=== PATIENT | female | born 1985 | race American Indian/Alaskan Native ===

== ENCOUNTER 2018-11-28 09:11 | Inpatient (IN) | payer MEDICAID ==
[2018-11-28] MEDS ORDERED: MAGNESIUM SULFATE 4GM/100ML 4 GM/100 ML BAG IV ONE (09:29)
[2018-11-28] MEDS ORDERED: LACTATED RINGERS 500 ML IV ONE (09:32)
[2018-11-28] MEDS: MAGNESIUM SULFATE 40GM/1000ML 40 GM/1,000 ML BAG IV SCH (09:45)
[2018-11-28] MEDS: LACTATED RINGERS 1,000 ML IV SCH (10:21)
[2018-11-28] MEDS: CELESTONE SOLUSPAN IM SCH (10:30)
[2018-11-28] MEDS ORDERED: STADOL IV ONE ×2 (10:43→18:23)
--- NOTE | 2018-11-28 11:12 | History and Physical Report ---
History of Present Illness Date of examination: 11/28/18 Chief complaint: Contractions History of present illness: Pt is a 33yo BF EDC 01/21/19; EGA 32 2/7 weeks presents to L&D via EMS complaining of strong contractions. She denied ROM or bleeding. She received care at [facility] and co-managed by [facility] for Previous C Section x 2 and Cerclage x 2, and currently receiving 17 Hydroxy-Progesterone. records are available. Past History Past Medical History: no pertinent history Past Surgical History: section (x2) Social history: no significant social history, single - Obstetrical History Expected Date of Delivery: 01/21/19 Actual Gestation: 32 Week(s) 3 Day(s) : 5 Medications and Allergies Allergies Allergy/AdvReac Type Severity Reaction Status Date / Time Penicillins Allergy Itching Verified 11/28/18 09:29 Home Medications Medication Instructions Recorded Confirmed Last Taken Type Albuterol Sulfate [Ventolin HFA] 2 puff IH Q4H PRN #1 hfa.aer.ad 10/11/1407/24 Unknown Rx Ferrous Sulfate [Feosol 325 MG tab] 325 mg PO BID #60 tablet 07/27/15 Unknown Rx Ibuprofen [Motrin 800 MG tab] 800 mg PO Q8H PRN #30 tablet 07/27/15 Unknown Rx Vit-Fe Fumar-FA [ 1 each PO QDAY #30 tablet 07/27/15 Unknown Rx Vitamin] Cyclobenzaprine HCl [Flexeril 5 MG 5 mg PO Q8HR PRN #10 tab 11/22/15 Unknown Rx TAB] Indomethacin [Indocin] 25 mg PO Q8H #9 capsule 11/22/15 Unknown Rx Ondansetron [Zofran Odt] 4 mg PO Q8HR #15 tab.rapdis 11/22/15 Unknown Rx Active Meds: Active Medications Betamethasone Acet/Betameth SodPhos (Celestone Soluspan) 12 mg IM Q24HR NAKUL Stop: 11/29/18 10:01 Last Admin: 11/28/18 10:30 Dose: 12 mg Documented by: Lactated Ringer's (Lactated Ringers) 1,000 mls @ 125 mls/hr IV DIRECT NAKUL Last Admin: 11/28/18 10:21 Dose: 75 mls/hr Documented by: Magnesium Sulfate (Magnesium Sulfate 40gm/1000ml) 40 gm in 1,000 mls @ 50 mls/hr IV DIRECT NAKUL Last Admin: 11/28/18 09:45 Dose: 2 gm/hr, 50 mls/hr Documented by: Review of Systems All systems: negative - Vital Signs Vital signs: Vital Signs Temp Resp 97.0 F L 18 11/28/18 09:32 11/28/18 09:32 Temp Pulse Resp BP Pulse Ox 97.0 F L 90 18 123/64 11/28/18 09:32 11/28/18 10:55 11/28/18 09:32 11/28/18 10:55 - Physical Exam Breasts: Positive: deferred Cardiovascular: Regular rate Lungs: Positive: Clear to auscultation Abdomen: Positive: normal appearance Genitourinary (Female): Positive: normal external genitalia Vagina: Positive: normal moisture Uterus: Positive: enlarged Extremities: Positive: normal - Obstetrical FHR: category 1 Uterine Contraction Monitor Mode: External Cervical Dilatation: 1 Results Result Diagrams: 11/28/18 09:40 All other labs normal. Assessment and Plan - Patient Problems (1) 32 weeks gestation of Onset Date: 11/28/18 Current Visit: Yes Status: Acute Plan to address problem: A: IUP @ 32 2/7 weeks contractions Previous C Section x 2 Incompetent cervix - with cerclage in place P: Admit to L&D for Observation Will begin IV magnesium for tocolysis, IV antibiotics and IM steroids Obtain Ob u/s Obtain [facility] consultation (2) contractions Onset Date: 11/28/18 Current Visit: Yes Status: Acute (3) Previous section Onset Date: 11/28/18 Current Visit: Yes Status: Acute (4) Incompetent cervix Onset Date: 11/28/18 Current Visit: Yes Status: Acute
[2018-11-28] MEDS ORDERED: COLACE PO PRN (11:13)
[2018-11-28] MEDS ORDERED: TYLENOL PO PRN (11:13)
[2018-11-28] MEDS ORDERED: BENADRYL PO PRN (11:13)
[2018-11-28] MEDS ORDERED: MILK OF MAGNESIA PO PRN (11:13)
[2018-11-28] MEDS ORDERED: ZOFRAN IV PRN (11:13)
[2018-11-28 11:43] LABS: Hematocrit 31.2 % (30.3-42.9); Hemoglobin 10.7 gm/dl (10.1-14.3); Mean Corpuscular HGB Conc 34 % (30-34); Mean Corpuscular Volume 93 fl (79-97); Platelet Count 254 K/mm3 (140-440); Red Blood Count 3.34 M/mm3 (3.65-5.03); Red Cell Distribution Width 14.9 % (13.2-15.2)
--- NOTE | 2018-11-28 13:45 | Ultrasound Report ---
ULTRASOUND BIOPHYSICAL PROFILE: History: labor Technique: Transabdominal ultrasound with Doppler interrogation. 2 - breathing movements 2 - movements 2 - posture and tone 2 - Qualitative amniotic fluid volume 8 - TOTAL SCORE OF POSSIBLE 8 Heart Rate (bpm) 123
[2018-11-28] MEDS: CLEOCIN 900 MG/50 mL 900 MG/50 ML BAG IV SCH (14:19)
[2018-11-28] MEDS ORDERED: AMBIEN PO PRN (23:26)
--- NOTE | 2018-11-28 23:34 | Ultrasound Report ---
PROCEDURE: US OB FOLLOW UP TECHNIQUE: Real-time limited sonographic examination was performed for evaluation of well-bein g, amniotic fluid volume for each fetus with image documentation (1 or more fetuses). HISTORY: well-being, PTL COMPARISONS: None . FINDINGS: MATERNAL Uterus: Within normal limits . Internal Os: closed . FETUS IUP: Single living intrauterine . Position: Vertex . Placental position: Anterior, without previa . Amniotic fluid volume: 4 quadrant volume 12.6 cm Heart rate and rhythm: 126 BPM, Regular . anatomic survey: Not performed for this study . MEASUREMENTS BPD: 8 cm . HC: 28.8 cm . AC: 28.5 cm . FL: 6.3 cm . Mean Gestational Age (composite criteria): 32 weeks 2 days . Ratio biometry: Normal . Estimated Weight: 1972 grams Interval growth: Appropriate . Estimated Due Date (this scan): 01/21/2019 . IMPRESSION: 1. Single living intrauterine gestation at approximately 32 weeks 2 days . 2. EDC by US 01/21/2019 . This document is electronically signed by Carla Bowen DO., November 29 2018 12:31:47 AM ET
[2018-11-28] MEDS ORDERED: PERCOCET 5/325 PO PRN (23:36)
[2018-11-29] MEDS: CLEOCIN 900 MG/50 mL 900 MG/50 ML BAG IV SCH ×4 (00:02→22:56)
[2018-11-29] MEDS: LACTATED RINGERS 1,000 ML IV SCH ×3 (02:00→12:34)
[2018-11-29] MEDS: MAGNESIUM SULFATE 40GM/1000ML 40 GM/1,000 ML BAG IV SCH (07:34)
[2018-11-29] MEDS: CELESTONE SOLUSPAN IM SCH (10:50)
[2018-11-29] MEDS: PRENATAL VITAMIN PO SCH (10:51)
[2018-11-29] MEDS: PERCOCET 5/325 PO PRN (12:34)
--- NOTE | 2018-11-29 15:13 | Consultation ---
History of Present Illness Consult date: 11/29/18 Requesting physician: TINO CERDA Reason for consult: contractions History of present illness: Patient Name: BRENDA BYRD : 87 Attending: Dr. Tino Cerda [employer]: Jose Francisco Hagen M.D. Date of Consultation: Thursday, November 29, 2018 Indication for Admission: * Intrauterine twin at 32 weeks 3 days gestation * Cervical Cerclage In Situ * Suspected uterine contractions, Rule out labor * History of gallbladder stones. Rule out Cholelithiasis Thank you for your recent consultation regarding the above named patient. As you are aware, this is a 33 year old para 1122 at 32 weeks 3 days (based on an JESSIE of 01/21/19) for whom I recently provided a perinatology consultation. As you are likely aware, this is a patient who underwent a cerclage placement due to cervical incompetence by Dr. Hagen on August 11, 2018. Patient was earlier yesterday with complaints contractions and pulling pain while walking. Patient indicates that she had similar symptoms at [facility] and was noted to have gallbladder stones. Those symptoms resolved with IV fluid and pain medication in August of 2018. Her exam showed an intact cerclage and a short cervical length. She denies vaginal bleeding or fluid leakage. PAST OB HISTORY: 2006: Delivery at 23 weeks complicated by cervical incompetence 2009: SAB; 2009: CS at 32 weeks with cerclage complicated by PPROM and emergency CP; 2016: CS at term. Had cerclage and adriana no other complications. [facility] ULTRASONOGRAPHY: * See report in chart. RECENT [facility] ULTRASOUND (11/18/18) EGA: 30 weeks 6 days. Cervical length: 3.6 cm H/O Inc Cervix with Cerclage Marginal Placenta Previa anterior Normal EFW 54 % previous scan BPP 8/8 reassuring status Physical Examination and Lab Testing: * See notes in patients chart * During vaginal examination the patients cervix was noted to be closed and long. * No contractions were palpable on examination. * Cerclage in situ * Admission Labs: See patients hospital chart Past History Past Medical History: no pertinent history Past Surgical History: section (x2) - Obstetrical History : 5 Medications and Allergies Allergies Allergy/AdvReac Type Severity Reaction Status Date / Time Penicillins Allergy Itching Verified 11/28/18 09:29 Home Medications Medication Instructions Recorded Confirmed Last Taken Type Albuterol Sulfate [Ventolin HFA] 2 puff IH Q4H PRN #1 hfa.aer.ad 10/11/14 Unknown Rx Ferrous Sulfate [Feosol 325 MG tab] 325 mg PO BID #60 tablet 07/27/15 Unknown Rx Ibuprofen [Motrin 800 MG tab] 800 mg PO Q8H PRN #30 tablet 07/27/15 Unknown Rx Vit-Fe Fumar-FA [ 1 each PO QDAY #30 tablet 07/27/15 Unknown Rx Vitamin] Cyclobenzaprine HCl [Flexeril 5 MG 5 mg PO Q8HR PRN #10 tab 11/22/15 Unknown Rx TAB] Indomethacin [Indocin] 25 mg PO Q8H #9 capsule 11/22/15 Unknown Rx Ondansetron [Zofran Odt] 4 mg PO Q8HR #15 tab.rapdis 11/22/15 Unknown Rx Active Meds: Active Medications Acetaminophen (Tylenol) 650 mg PO Q4H PRN PRN Reason: Pain MILD(1-3)/Fever >100.5/CLOUD Diphenhydramine HCl (Benadryl) 25 mg PO Q6H PRN PRN Reason: Itching Docusate Sodium (Colace) 100 mg PO Q12H PRN PRN Reason: Constipation Magnesium Sulfate (Magnesium Sulfate 40gm/1000ml) 40 gm in 1,000 mls @ 50 mls/hr IV DIRECT NAKUL Last Admin: 11/29/18 07:34 Dose: 2 gm/hr, 50 mls/hr Documented by: Lactated Ringer's (Lactated Ringers) 1,000 mls @ 125 mls/hr IV DIRECT NAKUL Last Admin: 11/29/18 12:34 Dose: 75 mls/hr Documented by: Clindamycin HCl (Cleocin 900 Mg/50 Ml) 900 mg in 50 mls @ 100 mls/hr IV Q8HR NAKUL; Protocol Last Admin: 11/29/18 13:51 Dose: 100 mls/hr Documented by: Magnesium Hydroxide (Milk Of Magnesia) 30 ml PO QHS PRN PRN Reason: Laxative Effect Multivitamins/Iron/Calcium ( Vitamin) 1 each PO QDAY [facility] Last Admin: 11/29/18 10:51 Dose: 1 each Documented by: Ondansetron HCl (Zofran) 4 mg IV Q6H PRN PRN Reason: Nausea And Vomiting Oxycodone/Acetaminophen (Percocet 5/325) 2 tab PO Q4H PRN PRN Reason: Pain, Moderate (4-6) Last Admin: 11/29/18 12:34 Dose: 2 tab Documented by: Oxycodone/Acetaminophen (Percocet 5/325) 1 tab PO Q4H PRN PRN Reason: Pain, Moderate (4-6) Last Admin: 11/28/18 23:59 Dose: 1 tab Documented by: Zolpidem Tartrate (Ambien) 10 mg PO QHS PRN PRN Reason: Insomnia - Vital Signs Vital signs: Vital Signs Temp Resp 97.0 F L 18 11/28/18 09:32 11/28/18 09:32 Temp Pulse Resp BP Pulse Ox 96.7 F L 100 H 17 108/56 11/29/18 08:12 11/29/18 14:55 11/29/18 08:12 11/29/18 14:55 Results Result Diagrams: 11/28/18 09:40 All other labs normal. Assessment and Plan ASSESSMENT * Intrauterine twin at 32 weeks 3 days gestation with suspected uterine contractions. * Cervical Cerclage In Situ * Suspected uterine contractions, Rule out labor * History of gallbladder stones. Rule out Cholelithiasis * We recommend Magnesium sulfate for neuroprotection. * Given the current findings, the likelihood for imminent premature delivery is UNCLEAR. RECOMMENDATIONS: 1. We would recommend an RUQ and gallbladder ultrasound to rule out cholecystitis 2. Given the current gestational age and estimated weight, I would recommend continued empiric tocolysis to avoid premature . 3. At this EGA we would NOT recommend indomethacin. 4. Analgesia PRN. 5. Given the EGA we would recommend steroids to enhance lung maturation should delivery be necessary. 6. Magnesium sulfate for neuroprotection. 7. If patient continues to complain of contractions I would REMOVE her cerclage and observe. 8. As always, this patient would benefit from analgesia or narcotic pain relief to facilitate therapeutic rest in the presence of painful contractions. 9. I would also abandon all attempts of tocolysis and prepare for delivery in the presence of SROM, unexplained vaginal bleeding, imminent failure of the cerclage, SVE > 6 cm or a non-reassuring heart rate pattern. Thank you for allowing us to participate in the care of this patient. We look forward to the opportunity to assist in her continued management. If you have any questions, we may be reached at [phone]. Jose Francisco Hagen M.D. [facility]
--- NOTE | 2018-11-29 19:47 | Progress Note ---
Assessment and Plan - Patient Problems (1) 32 weeks gestation of Onset Date: 11/28/18 Current Visit: Yes Status: Acute Plan to address problem: A: IUP @ 32 3/7 weeks contractions Previous C Section x 2 Incompetent cervix - with cerclage in place P: Continue observation Continue IV magnesium for tocolysis, IV antibiotics and IM steroids Appreciate [facility] consultation Obtain RUQ u/s (2) contractions Onset Date: 11/28/18 Current Visit: Yes Status: Acute (3) Previous section Onset Date: 11/28/18 Current Visit: Yes Status: Acute (4) Incompetent cervix Onset Date: 11/28/18 Current Visit: Yes Status: Acute Subjective - Subjective Date of service: 11/29/18 Principal diagnosis: IUP @ 32 3/7 weeks; contractions; Incompetent cervix; C Section x 2 Interval history: Pt is a 33yo BF EDC 01/21/19; EGA 32 3/7 weeks presented to L&D via EMS complaining of strong contractions - now improved after IV Magnesium for tocolysis. She denies ROM or bleeding. She received care at [facility] and co-managed by [facility] for Previous C Section x 2 and Cerclage x 2, and currently receiving 17 Hydroxy-Progesterone. Since admission her pains have improved. +FM Patient reports: movement normal, contractions, no new complaints, no loss of fluid, no vaginal bleeding Objective - Vital Signs Vital Signs: Vital Signs - 12hr 11/29/18 11/29/18 11/29/18 07:56 08:11 08:12 Temperature 96.7 F L 96.7 F L Pulse Rate 112 H Respiratory 15 17 Rate Blood Pressure 114/63 11/29/18 11/29/18 11/29/18 08:55 09:56 10:56 Temperature Pulse Rate 94 H 108 H 99 H Respiratory Rate Blood Pressure 130/68 120/55 126/62 11/29/18 11/29/18 11/29/18 11:56 11:57 12:00 Temperature 98.1 F Pulse Rate 109 H 109 H Respiratory 16 Rate Blood Pressure 126/60 121/55 11/29/18 11/29/18 11/29/18 12:09 12:56 13:56 Temperature Pulse Rate 100 H 105 H 99 H Respiratory Rate Blood Pressure 135/68 129/65 114/52 11/29/18 11/29/18 11/29/18 14:55 15:55 16:50 Temperature 97.9 F Pulse Rate 100 H 96 H Respiratory Rate Blood Pressure 108/56 106/56 11/29/18 11/29/18 11/29/18 16:57 17:55 18:56 Temperature Pulse Rate 103 H 97 H 105 H Respiratory Rate Blood Pressure 135/65 127/65 117/56 - Exam Abdomen: Present: normal appearance, soft Uterus: Present: normal FHR: category 1 Uterine Contraction Monitor Mode: External Uterine Contraction Pattern: Irregular Uterine Contraction Intensity: Mild - Labs Labs: Abnormal Labs 11/28/18 09:40 RBC 3.34 L
[2018-11-29 20:56] LABS: Alanine Aminotransferase 9 units/L (7-56)
[2018-11-30] MEDS: LACTATED RINGERS 1,000 ML IV SCH ×2 (04:01→17:09)
[2018-11-30] MEDS: CLEOCIN 900 MG/50 mL 900 MG/50 ML BAG IV SCH ×2 (08:16→16:25)
[2018-11-30] MEDS: MAGNESIUM SULFATE 40GM/1000ML 40 GM/1,000 ML BAG IV SCH (08:17)
[2018-11-30] MEDS: PRENATAL VITAMIN PO SCH (11:02)
--- NOTE | 2018-11-30 13:23 | Progress Note ---
Assessment and Plan - Patient Problems (1) 32 weeks gestation of Onset Date: 11/28/18 Current Visit: Yes Status: Acute Plan to address problem: A: IUP @ 32 4/7 weeks contractions - resolved Previous C Section x 2 Incompetent cervix - with cerclage in place P: Discontinue IV magnesium for tocolysis. S/P IV antibiotics and IM steroids Appreciate [facility] consultation Anticipate discharge tomorrow. (2) contractions Onset Date: 11/28/18 Current Visit: Yes Status: Acute (3) Previous section Onset Date: 11/28/18 Current Visit: Yes Status: Acute (4) Incompetent cervix Onset Date: 11/28/18 Current Visit: Yes Status: Acute Subjective - Subjective Date of service: 11/30/18 Principal diagnosis: IUP @ 32 4/7 weeks; contractions; Incompetent cervix; C Section x 2 Interval history: Pt is a 33yo BF EDC 01/21/19; EGA 32 4/7 weeks presented to L&D via EMS complaining of strong contractions - now improved after IV Magnesium for tocolysis. She denies ROM or bleeding. She received care at [facility] and co-managed by [facility] for Previous C Section x 2 and Cerclage x 2, and currently receiving 17 Hydroxy-Progesterone. Since admission her pains have improved, she received Betamethasone an IV Magnesium sulfate, and RUQ u/s showed 2 small gallstones. +FM Patient reports: movement normal, contractions, no new complaints, no loss of fluid, no vaginal bleeding Objective - Vital Signs Vital Signs: Vital Signs - 12hr 11/30/18 11/30/18 11/30/18 01:55 02:55 03:56 Temperature Pulse Rate 92 H 100 H 90 Respiratory Rate Blood Pressure 109/55 112/55 112/57 11/30/18 11/30/18 11/30/18 04:57 05:55 06:55 Temperature Pulse Rate 93 H 95 H 93 H Respiratory Rate Blood Pressure 110/55 104/54 114/62 11/30/18 11/30/18 11/30/18 07:55 08:50 08:51 Temperature 98.2 F Pulse Rate 92 H 100 H Respiratory 18 Rate Blood Pressure 109/58 107/56 06/05/19 06/05/19 06/05/19 08:55 09:55 10:55 Temperature Pulse Rate 96 H 97 H 97 H Respiratory Rate Blood Pressure 108/58 103/54 105/49 11/30/18 11/30/18 11/30/18 11:55 12:24 12:55 Temperature 98.9 F Pulse Rate 108 H 98 H Respiratory 18 Rate Blood Pressure 125/65 112/57 - Exam Lungs: Clear to auscultation Abdomen: Present: normal appearance Uterus: Present: normal FHR: category 1 Uterine Contraction Monitor Mode: External Uterine Contraction Pattern: Absent - Labs Labs: Abnormal Labs 11/28/18 09:40 RBC 3.34 L Laboratory Results - last 24 hr 11/29/18 20:04 AST 13 ALT 9 - Results US- obstetric: report reviewed
--- NOTE | 2018-11-30 14:58 | Progress Note ---
Assessment and Plan ASSESSMENT * 32 weeks 4 days gestation with suspected uterine contractions; denies contractions today. * Cervical Cerclage In Situ * Suspected uterine contractions, Rule out labor * History of gallbladder stones. Rule out Cholelithiasis; pending ultrasound report dated 11/30/18 * Magnesium sulfate for neuroprotection in progress * RECOMMENDATIONS: 1. Continued empiric tocolysis to avoid premature . 2. At this EGA we would NOT recommend indomethacin. 3. Analgesia PRN. 4. Steroids to enhance lung maturation should delivery be necessary. 5. Magnesium sulfate for neuroprotection in progress. 6. With continued to complain of contractions REMOVE her cerclage and observe. 7. As always, this patient would benefit from analgesia or narcotic pain relief to facilitate therapeutic rest in the presence of painful contractions. 8. Abandon all attempts of tocolysis and prepare for delivery in the presence of SROM, unexplained vaginal bleeding, imminent failure of the cerclage, SVE > 6 cm or a non-reassuring heart rate pattern. Thank you for allowing us to participate in the care of this patient. We look forward to the opportunity to assist in her continued management. If you have any questions, please contact our oncall physician Dr. Altman. Subjective - Subjective Date of service: 11/30/18 Principal diagnosis: IUP @ 32 4/7 weeks; contractions; Incompetent cervix; C Section x 2 Interval history: Patient reports that she experiences pain in position pain. Denies pain at present and reports pain scale as 0/10. Patient expresses that the pain she feels is in the area of her previous C.section scar. Reports that when she does feel pain it is worse on the left of her C.section incision. Report from Abdominal ultrasound pending. Patient reports: movement normal, contractions (Denies contractions, leakage of fluid, vaginal bleeding), no new complaints, no loss of fluid, no vaginal bleeding Objective - Vital Signs Vital Signs: Vital Signs - 12hr 11/30/18 11/30/18 11/30/18 02:55 03:56 04:57 Temperature Pulse Rate 100 H 90 93 H Respiratory Rate Blood Pressure 112/55 112/57 110/55 11/30/18 11/30/18 11/30/18 05:55 06:55 07:55 Temperature Pulse Rate 95 H 93 H 92 H Respiratory Rate Blood Pressure 104/54 114/62 109/58 11/30/18 11/30/18 11/30/18 08:50 08:51 08:55 Temperature 98.2 F Pulse Rate 100 H 96 H Respiratory 18 Rate Blood Pressure 107/56 108/58 11/30/18 11/30/18 11/30/18 09:55 10:55 11:55 Temperature Pulse Rate 97 H 97 H 108 H Respiratory Rate Blood Pressure 103/54 105/49 125/65 11/30/18 11/30/18 11/30/18 12:24 12:55 13:55 Temperature 98.9 F Pulse Rate 98 H 97 H Respiratory 18 Rate Blood Pressure 112/57 109/59 - Exam Cardiovascular: Regular rate Lungs: Normal air movement Abdomen: Present: normal appearance, soft, other (gravid) - Labs Labs: Abnormal Labs 11/28/18 09:40 RBC 3.34 L Laboratory Results - last 24 hr 11/29/18 20:04 AST 13 ALT 9
--- NOTE | 2018-11-30 16:19 | Ultrasound Report ---
RIGHT UPPER QUADRANT ABDOMINAL ULTRASOUND: 11/30/18 CLINICAL: Right upper quadrant pain. FINDINGS: High-resolution ultrasound demonstrated a normal liver. Normal hepatic vasculature and inferior vena cava. Normally distended gallbladder with several stones in the gallbladder neck. The gall bladder wall measures 3 mm in thickness. No pericholecystic fluid. Normal intrahepatic and extra hepatic bile ducts. The common bile duct measures 3.0 mm diameter. The pancreas was well imaged and normal. Normal upper abdominal aorta. The right kidney is normal and measures 9.7 x 4.9 x 5.2cm. No ascites or mass. IMPRESSION: Cholelithiasis but no evidence of acute cholecystitis or choledocholithiasis. No signs of pancreatitis.
[2018-12-01] MEDS: PERCOCET 5/325 PO PRN (00:34)
--- NOTE | 2018-12-01 08:55 | Progress Note ---
Assessment and Plan - Patient Problems (1) 32 weeks gestation of Onset Date: 11/28/18 Current Visit: Yes Status: Acute Plan to address problem: A: IUP @ 32 5/7 weeks contractions - resolved Previous C Section x 2 Incompetent cervix - with cerclage in place P: Appreciate [facility] consultation May go home today. (2) contractions Onset Date: 11/28/18 Current Visit: Yes Status: Acute (3) Previous section Onset Date: 11/28/18 Current Visit: Yes Status: Acute (4) Incompetent cervix Onset Date: 11/28/18 Current Visit: Yes Status: Acute Subjective - Subjective Date of service: 12/01/18 Principal diagnosis: IUP @ 32 5/7 weeks; contractions; Incompetent cervix; C Section x 2 Interval history: Pt is a 33yo BF EDC 01/21/19; EGA 32 5/7 weeks presented to L&D via EMS complaining of strong contractions - now improved after IV Magnesium for tocolysis. She denies ROM or bleeding. She received care at [facility] and co-managed by [facility] for Previous C Section x 2 and Cerclage x 2, and currently receiving 17 Hydroxy-Progesterone. Since admission her pains have improved, she received Betamethasone an IV Magnesium sulfate, and RUQ u/s showed small gallstones , but no cholecystitis. +FM Patient reports: movement normal, contractions (Denies contractions, leakage of fluid, vaginal bleeding), no new complaints, no loss of fluid, no vaginal bleeding Objective - Vital Signs Vital Signs: Vital Signs - 12hr 12/01/18 12/01/18 12/01/18 00:00 00:07 00:34 Temperature 97.3 F L Pulse Rate 91 H 90 Respiratory 19 18 Rate Blood Pressure 110/55 Blood Pressure 110/55 [Right] 12/01/18 12/01/18 04:15 04:16 Temperature 96.9 F L Pulse Rate 82 Respiratory 18 Rate Blood Pressure 118/73 Blood Pressure [Right] - Exam Abdomen: Present: normal appearance, soft Uterus: Present: normal FHR: category 1 Uterine Contraction Monitor Mode: External Uterine Contraction Pattern: Absent - Labs Labs: Abnormal Labs 11/28/18 09:40 RBC 3.34 L - Results US- obstetric: report reviewed
[2018-12-01] MEDS: PRENATAL VITAMIN PO SCH (11:35)
--- NOTE | 2018-12-01 14:55 | Progress Note ---
Assessment and Plan ASSESSMENT * 32 weeks 5 days gestation with suspected uterine contractions; Reports 4 contractions today. * Incompetent cervix history * Cervical Cerclage In Situ * Suspected uterine contractions, Rule out labor * History of gallbladder stones.( patient was diagnosised in August 2018 ) No surgical consult rendered * 11/30/18 [facility] Cholelithiasis appreciated * Patient reports pain scale 9/10 * History of C/S times 2 * S/P Magnesium sulfate for neuroprotection * S/P BMZ for FLM * [facility] 11/28/18 Reassuring growth assessment and BPP RECOMMENDATIONS: 1. With pain scale of 9/10 consider GI consult jessie with this being her second admission with same complaint . 2. At this EGA we would NOT recommend indomethacin. 3. Analgesia PRN. 4. With continued to complain of contractions REMOVE her cerclage and observe. 7. As always, this patient would benefit from analgesia or narcotic pain relief to facilitate therapeutic rest in the presence of painful contractions. 8. Abandon all attempts of tocolysis and prepare for delivery in the presence of SROM, unexplained vaginal bleeding, imminent failure of the cerclage, SVE > 6 cm or a non-reassuring heart rate pattern. If you have any questions, please contact our oncall physician Dr. Altman. Subjective - Subjective Principal diagnosis: IUP @ 32 5/7 weeks; contractions; Incompetent cervix; C Section x 2 Patient reports: movement normal, contractions (Denies contractions, leakage of fluid, vaginal bleeding), no new complaints, no loss of fluid, no vaginal bleeding Objective - Vital Signs Vital Signs: Vital Signs - 12hr 12/01/18 12/01/18 12/01/18 04:15 04:16 08:00 Temperature 96.9 F L 97.6 F Pulse Rate 82 Respiratory 18 Rate Blood Pressure 118/73 Blood Pressure [Right] O2 Sat by Pulse Oximetry 12/01/18 12/01/18 11:43 11:45 Temperature 96.8 F L Pulse Rate 86 62 Respiratory 16 Rate Blood Pressure 108/56 Blood Pressure 100/56 [Right] O2 Sat by Pulse 99 Oximetry - Exam Breasts: deferred Cardiovascular: Regular rate Lungs: Normal air movement Abdomen: Present: soft, tenderness (LLQ ), other (gravid ). Absent: guarding FHR: category 1 (for 32 + weeks) Uterine Contraction Monitor Mode: External (No contraction traced . TOCO adjusted) Uterine Contraction Pattern: Absent Extremities: normal Deep Tendon Reflex Grade: Normal +2 - Labs Labs: Abnormal Labs 11/28/18 09:40 RBC 3.34 L - Results US- obstetric: report reviewed (SEE FULL [facility] ABD US from 11/30/18)
[2018-12-01] MEDS: CLEOCIN 900 MG/50 mL 900 MG/50 ML BAG IV SCH ×2 (15:18)
[2018-12-01 17:13] VITALS: BP 103/52
--- NOTE | 2018-12-01 17:26 | Discharge Summary ---
Providers - Providers Date of Admission: 11/29/18 16:46 Date of discharge: 12/01/18 Attending physician: STEVE KINCAID 11/28/18 11:28 Consult to Physician [CONS] Urgent Comment: Consulting Provider: ART HAMLIN Physician Instructions: Reason For Exam: IUP @ 32 weeks; contractions Primary care physician: PHARMACIST AIDE Hospitalization Reason for admission: IUP - , section (Previous C Section x 2; Incompetent cervix), labor Episiotomy: none Laceration: none Other procedures: none Discharge diagnosis: other (IUP @ 32 5/7 weeks; Previous C Section x 2; Incompetent cervix) Hospital course: Pt is a 33yo BF EDC 01/21/19; EGA 32 5/7 weeks who presented to L&D via EMS complaining of strong contractions - now resolved after IV Magnesium for tocolysis. She denied ROM or bleeding. She received care at [facility] and co-managed by [facility] for Previous C Section x 2 and Cerclage x 2, and currently receiving 17 Hydroxy-Progesterone. Since admission her pains have improved, she received Betamethasone an IV Magnesium sulfate, and RUQ u/s showed small gallstones , but no cholecystitis. +FM. She is feeling well and wants to go home to follow up with her OB tomorrow. Condition at discharge: Good Disposition: DC-01 TO HOME OR SELFCARE - Discharge Diagnoses (1) 32 weeks gestation of Status: Acute (2) contractions Status: Resolved (3) Previous section Status: Chronic (4) Incompetent cervix Status: Chronic Plan - Provider Discharge Summary Activity: routine, no sex for 6 weeks, no heavy lifting 4 weeks, no strenuous exercise Diet: routine Instructions: routine Additional instructions: [] Smoking cessation referral if applicable(refer to patient education folder for contact #) [] Refer to [facility] Booklet Call your doctor immediately for: * Fever > 100.5 * Heavy vaginal bleeding ( >1 pad per hour) * Severe persistent headache * Shortness of breath * Reddened, hot, painful area to leg or breast * Drainage or odor from incision. * Keep incision clean and dry at all times and follow doctor's instructions regarding bathing/showering - Follow up plan Follow up: PRIMARY CARE, [Primary Care Provider] - 3 Days STEVE KINCAID MD [Staff Physician] - 7 Days
== END 2018-12-01 18:35 | disposition home or self-care (01) | DRG 778 ==
LOC: TRG 09:11 → LD 09:12 → TRG 11-29 16:45 → LD 11-29 16:46
PROVIDERS: ADMIT Obstetrics & Gynecology; ATTEND Obstetrics & Gynecology
DX: O60.03 Preterm labor without delivery, third trimester (principal); O34.33 Maternal care for cervical incompetence, third trimester; O99.613 Diseases of the digestive system complicating pregnancy, third trimester; O34.211 Maternal care for low transverse scar from previous cesarean delivery; K80.20 Calculus of gallbladder without cholecystitis without obstruction; Z3A.32 32 weeks gestation of pregnancy; Z88.0 Allergy status to penicillin; Z79.51 Long term (current) use of inhaled steroids
CPT/HCPCS: 36415; 59025; 76705; 76816; 76819; 84450; 84460; 85027; 86850; 86900; 86901; 87086; G0378; J0595; J0702; J3475; J7120